=== PATIENT | male | born 1945 | race Caucasian/White ===

== ENCOUNTER 2018-03-25 14:22 | Emergency (ER) | payer MEDICARE, SELFPAY ==
--- NOTE | 2018-03-25 14:22 | DT_ITS ---
This patient was seen during an EMR downtime March 20, 2018 - March 27, 2018. This patient may have a combination of paper and electronic documentation or all paper documentation. All documentation is viewable within the e-chart portion of [facility] for each patient visit.
== END 2018-03-25 14:50 | disposition home or self-care (01) ==
LOC: ED 03-26 14:01
PROVIDERS: Emergency Provider Emergency Medicine
DX: E10.9 Type 1 diabetes mellitus without complications (principal); Z79.4 Long term (current) use of insulin
CPT/HCPCS: 99282